=== PATIENT | male | born 1955 | race Two or more races ===

== ENCOUNTER 2023-08-02 17:09 | Emergency (ER) | payer OTHER, BC ==
[~2023-08-02] VITALS: Ht 182.9 cm; Wt 93.0 kg
[2023-08-02 19:02] LABS: HEMATOCRIT 27.2 % (39.0-48.0); MEAN CELL VOLUME 71.7 fL (80.0-100.00); MEAN CORPUSCULAR HGB CONC 32.1 g/dl (32.0-36.0); PLATELET COUNT 567 K/uL (150-450); RED BLOOD COUNT 3.79 M/uL (4.00-6.00); RED CELL DISTRIBUTION WIDTH 18.7 % (11.5-14.5)
[2023-08-02 19:03] LABS: HEMOGLOBIN 8.7 g/dL (13-16.00); MEAN CORPUSCULAR HEMOGLOBIN 22.9 pg (27.00-32.0)
[2023-08-02 19:20] LABS: ALBUMIN 3.6 gm/dL (3.4-5.0); BILIRUBIN TOTAL 0.45 mg/dL (0.3-1.2); CALCIUM 9.9 mg/dL (8.5-10.1); CREATININE SERUM 1.79 mg/dL (0.70-1.30); GFR 37.95; GLOBULINA 4.9 G/DL (2.4-3.5); POTASSIUM 3.26 mEq/L (3.5-5.1); TOTAL PROTEIN 8.5 gm/dL (6.4-8.2)
[2023-08-02 19:24] LABS: INR 1.22; PARTIAL THROMBOPLASTIN TIME 35.3 SECONDS (22.0-34.0); PROTHROMBIN TIME 12.6 SECONDS (9.0-11.5)
[2023-08-02 20:19] LABS: PH,URINE 6.5; URINE BLOOD LARGE; URINE GLUCOSE NEGATIVE (NEGATIVE); URINE LEUKOCYTE NEGATIVE; URINE NITRATE NEGATIVE
[2023-08-02 20:20] LABS: URINE BILIRRUBIN MODERATE (NEGATIVE); URINE PROTEIN >=300 (NEGATIVE)
[2023-08-02 20:26] LABS: URINE APPEARANCE BLOODY; URINE COLOR RED
[2023-08-02 20:33] LABS: URINE BACTERIA MODERATE; URINE CRYSTALS NEGATIVE /HPF; URINE EPITHELIAL CELLS 0-4 /HPF; URINE MUCUS SCANT; URINE RBC LOADED /HPF
[2023-08-03 00:10] LABS: ob POSITIVE (NEGATIVE)
[2023-08-03 07:20] LABS: HEMATOCRIT 27.4 % (39.0-48.0); MEAN CELL VOLUME 71.3 fL (80.0-100.00); MEAN CORPUSCULAR HGB CONC 32.6 g/dl (32.0-36.0); PLATELET COUNT 478 K/uL (150-450); RED BLOOD COUNT 3.85 M/uL (4.00-6.00); RED CELL DISTRIBUTION WIDTH 18.9 % (11.5-14.5)
[2023-08-03 07:23] LABS: ALBUMIN 3.2 gm/dL (3.4-5.0); BILIRUBIN TOTAL 0.4 mg/dL (0.3-1.2); CREATININE SERUM 1.39 mg/dL (0.70-1.30); GFR 50.81; GLOBULINA 4.7 G/DL (2.4-3.5); TOTAL PROTEIN 7.9 gm/dL (6.4-8.2)
[2023-08-03 07:30] LABS: MEAN CORPUSCULAR HEMOGLOBIN 23.1 pg (27.00-32.0)
[2023-08-03 07:31] LABS: HEMOGLOBIN 8.9 g/dL (13-16.00)
== END 2023-08-03 21:12 | disposition left against medical advice (07) ==
LOC: ER 17:10
PROVIDERS: General Practice
DX: N39.0 Urinary tract infection, site not specified (principal); T50.905A Adverse effect of unspecified drugs, medicaments and biological substances, initial encounter; R31.9 Hematuria, unspecified; K62.5 Hemorrhage of anus and rectum; E11.9 Type 2 diabetes mellitus without complications; I10 Essential (primary) hypertension
CPT/HCPCS: 36415; 74177; 96365; 96366; 99284; J0696; J3490 ×3; J7030 ×2; Q9965